=== PATIENT | female | born 1995 | race Caucasian/White ===

== ENCOUNTER 2017-08-21 00:07 | Emergency (ER) | payer MEDICARE ==
[~2017-08-21] VITALS: Ht 154.9 cm; Wt 45.3 kg
[2017-08-21 01:01] LABS: HEMATOCRIT 39.9 % (36.0-46.0); HEMOGLOBIN 13.5 G/DL (11.9-15.5); MCHC 33.8 G/DL (30.0-36.0); MCV 88.7 FL (83-99); PLATELET COUNT 310 K/uL (156-360); RBC DIS.WIDTH-CV 13.1 % (11.8-14.6); RBC DIS.WIDTH-SD 42.8 % (39-53); WHITE BLOOD COUNT 9.6 K/uL (4.1-10.2)
[2017-08-21 01:11] LABS: CHLORIDE 106 mEq/L (99-109); POTASSIUM 3.9 mEq/L (3.7-5.4); SODIUM 138 mEq/L (136-147)
[2017-08-21 01:13] LABS: GLUCOSE 101 mg/dL (70-99)
[2017-08-21 01:17] LABS: CREATININE 0.8 mg/dL (0.6-1.3); GFR ESTIMATE (CALCULATED) > 59 mL/min/
[2017-08-21 01:18] LABS: UREA NITROGEN (BUN) 8 mg/dL (9-23)
[2017-08-21 01:24] LABS: TROP-I INTERPRETATION NEGATIVE; TROPONIN-I < 0.01 ng/mL (0.0-0.30)
[2017-08-21 01:59] VITALS: BP 154/94
== END 2017-08-21 02:19 | disposition home or self-care (01) ==
LOC: EME 00:07
DX: R07.9 Chest pain, unspecified (principal)
CPT/HCPCS: 71046; 80048; 84484; 85027; 93005; J1885